=== PATIENT | female | born 1990 | race Caucasian/White ===

== ENCOUNTER → 2021-06-23 | Outpatient (CLI) | payer MEDICAID ==
[~2021-06-23] MED LIST: DCS100C PO; FRS325T PO; HYDR-34 PO; IBP600T1 PO; METR500T PO; NAPR-243 PO; PREN-115 PO
== END ==
LOC: LABNPT 15:08
PROVIDERS: ATTEND Family Medicine
DX: Z01.419 Encounter for gynecological examination (general) (routine) without abnormal findings (principal)
CPT/HCPCS: 87210

== ENCOUNTER → 2022-02-16 | Outpatient (CLI) | payer MEDICAID ==
--- NOTE | 2022-02-16 15:42 | Diagnostic Imaging Report ---
INDICATION: Right arm pain AP and lateral views of right forearm are obtained. FINDINGS: No acute fracture or dislocation is identified. No abnormal lytic or sclerotic focus is seen, and there is no radiopaque foreign body. IMPRESSION: No acute abnormality. Dictated by: Dictated on workstation # [id number]
== END ==
LOC: RAD FS 15:10
PROVIDERS: ATTEND Family Medicine
DX: M79.601 Pain in right arm (principal)
CPT/HCPCS: 73090

== ENCOUNTER 2022-05-11 22:00 | Emergency (ER) | payer MEDICAID ==
[2022-05-11 22:24] VITALS: BP 155/100
--- NOTE | 2022-05-11 22:24 | ED Lower Extremity ---
General Chief Complaint: Lower Extremity Stated Complaint: R FOOT TOE PAIN Nursing Triage Note: Pt states she fell off a stool and stubbed her toe around 1400 today. Pt complaining of right second toe pain Source: patient Exam Limitations: no limitations History of Present Illness Date Seen by Provider: May 11, 2022 Time Seen by Provider: 22:03 Initial Comments 31-year-old female with no pertinent past medical history coming in after she fell off a stool around 2 PM today bending the right second toe backwards. She says she had to push it back into place. Had immediate pain which is sharp, severe when she is moving, better when she is resting. Has not had anything for it as of yet. Is otherwise denying any other acute complaints Allergies and Home Medications Allergies Coded Allergies: No Known Drug Allergies (Unverified , 05/28/10) Patient Home Medication List Home Medication List Reviewed: Yes Docusate Sodium (Colace Capsule) 100 Mg Cap, 100 MG PO BID Prescribed by: BRENTON MACHADO on 09/05/13 1003 Ibuprofen (Motrin) 600 Mg Tab, 600 MG PO Q6H Prescribed by: BRENTON MACHADO on 09/05/13 1003 Vit #108/Iron/Fa ( One Tablet) 1 Each Tablet, 1 EACH PO DAILY, (Reported) Entered as Reported by: ELADIO CHEEMA on 06/05/12 1729 Review of Systems Constitutional: No fever EENTM: no symptoms reported Respiratory: no symptoms reported Cardiovascular: no symptoms reported Gastrointestinal: no symptoms reported Genitourinary: no symptoms reported Musculoskeletal: joint pain Skin: no symptoms reported Psychiatric/Neurological: No Symptoms Reported All Other Systems Reviewed Negative Unless Noted: Yes Past Vktisfh-Jphxmy-Xeprap Hx Patient Social History Tobacco Use?: No Use of E-Cig and/or Vaping dev: No Substance use?: No Alcohol Use?: No Pt feels they are or have been: No Immunizations Up To Date Tetanus Booster (TDap): Less than 5yrs Past Medical History Surgeries: No Reproductive Disorders: No Female Reproductive Disorders: Denies Sexually Transmitted Disease: No HIV/AIDS: No Adverse Reaction/Blood Tranf: No Family Medical History Alcoholism 03 MOTHER Family history: Gastrointestinal disease 03 FATHER (Hepatitis C- 1997) 03 MOTHER (Hepatitis C- 2012) Family history: Hypertension 03 MOTHER 09 BROTHER 09 BROTHER (Hepatitis C) History of drug abuse 03 MOTHER (Methamphetamine) 09 BROTHER (Methamphetamine) Infertile 09 SISTER Kidney disease 03 MOTHER (Kidney Failure) No Family History of: Abdominal aortic aneurysm [place]'s disease Aphasia Cancer Cancer of colon Cataract Chest pain Congenital heart disease Congestive heart failure Cystic fibrosis Dementia Dysphagia Family history: Allergy Family history: Alzheimer's disease Family history: Arthritis Family history: Asthma Family history: Breast disease Family history: Cardiovascular disease Family history: Coronary thrombosis Family history: Diabetes mellitus Family history: Glaucoma Family history: Osteoporosis Family history: Thyroid disorder Headache Hearing loss Heart disease Hereditary disease History of - anemia History of - disorder History of - respiratory disease Human immunodeficiency virus (HIV) seropositivity Hypercholesterolemia Malignant neoplasm of lung Myocardial infarction Parkinson's disease Prostate cancer Psychotic disorder Seizure disorder Stroke Tuberculosis Visual impairment Physical Exam Vital Signs Vital Signs - First Documented 05/11/22 22:04 Pulse 66 Resp 16 B/P (MAP) 155/100 (118) Pulse Ox 99 O2 Delivery Room Air Capillary Refill : Less Than 3 Seconds Height, Weight, BMI Height: '" Weight: 146lbs. oz. 66.086980kh; BMI Method:Stated General Appearance: WD/WN, no apparent distress HEENT: PERRL/EOMI, normal ENT inspection, pharynx normal Neck: non-tender, full range of motion, supple, normal inspection Cardiovascular: regular rate, rhythm, no edema, no murmur Respiratory: chest non-tender, lungs clear, normal breath sounds, no respiratory distress, no accessory muscle use Gastrointestinal: normal bowel sounds, non tender, soft; No guarding Back: normal inspection Feet: left foot non-tender, left foot normal inspection, left foot normal range of motion, left foot no evidence of injury; right foot pain, right foot soft tissue tenderness, right foot swelling, right foot other (Bruising to the right second toe with maximal pain along the proximal intermediate phalanx) Neurologic/Tendon: normal sensation, normal motor functions, normal tendon functions Neurologic/Psychiatric: no motor/sensory deficits, alert, normal mood/affect Skin: normal color, warm/dry Lymphatic: no adenopathy Progress/Results/Core Measures Results/Orders My Orders Orders - NEW RAMIREZ MD Foot 2 View Right (05/11/22 22:05) Vital Signs/I&O 05/11/22 22:04 Pulse 66 Resp 16 B/P (MAP) 155/100 (118) Pulse Ox 99 O2 Delivery Room Air Blood Pressure Mean: 118 Progress Progress Note : Progress Note 31-year-old female with above history coming in due to pain in the right second toe. ABCs were intact and vitals were stable on presentation. She has bruising and tenderness over the second intermediate phalanx proximally. X-ray ordered and interpreted by me of the right foot showing a fracture of the proximal asp ect of the proximal second intermediate phalanx. Offered ibuprofen but she does not want it at this time. She was given a postop shoe and will follow up with orthopedics. Departure Impression Primary Impression: Fracture of toe Qualified Codes: S92.524A - Nondisplaced fracture of middle phalanx of right lesser toe(s), initial encounter for closed fracture Disposition: HOME, SELF-CARE Condition: Stable Departure-Patient Inst. Decision time for Depature: 22:23 Referrals: SUPA KWAN MD (PCP/Family) Primary Care Physician RYDER FRANK Patient Instructions: Toe Fracture ED Add. Discharge Instructions: Your toe is broken, and likely will heal well on its own. Follow-up with the helpdesk specialist, Nino Frank is here in town who's number is in this paperwork. If you would prefer you can follow-up with someone else. Take ibuprofen and/or Tylenol as needed for pain. You can also ice it. Work/School Note: Work Release Form Date Seen in the Emergency Department: May 11, 2022 Return to Work: May 13, 2022 Restrictions: No Restrictions NEW RAMIREZ MD May 11, 2022 22:24
--- NOTE | 2022-05-11 22:27 | Diagnostic Imaging Report ---
EXAMINATION: Right foot radiographs, 3 views. COMPARISON: None. HISTORY: 31-year-old female, fall. Right foot pain. FINDINGS: There is normal variant congenital fusion of the fifth digit middle and distal phalanges. There is an ossification adjacent to the lateral aspect of the base of the second middle phalanx which may reflect a mildly displaced intra-articular fracture. The joint spaces appear well-preserved. There is no radiopaque foreign body. IMPRESSION: Probable mildly displaced intra-articular fracture involving the lateral aspect of the base of the second middle phalanx. Dictated by: Dictated on workstation # [id number]
== END 2022-05-11 22:27 | disposition home or self-care (01) ==
LOC: EDUNIT# 22:00 → ER FS 22:01
DX: S92.511A Displaced fracture of proximal phalanx of right lesser toe(s), initial encounter for closed fracture (principal); Z28.310 Unvaccinated for COVID-19; W08.XXXA Fall from other furniture, initial encounter
CPT/HCPCS: 73620

== ENCOUNTER → 2022-05-16 | Outpatient (CLI) | payer MEDICAID ==
[2022-05-16 22:35] LABS: HEPATITIS C ANTIBODY C Non-Reactive (Non-Reactive)
== END ==
LOC: LAB FS 10:47
PROVIDERS: ATTEND Family Medicine
DX: Z11.3 Encounter for screening for infections with a predominantly sexual mode of transmission (principal)
CPT/HCPCS: 36415; 86780; 86803; 87210; 87389

== ENCOUNTER → 2022-05-16 | Outpatient (CLI) | payer MEDICAID | LOC: LABNPT 14:56 | PROVIDERS: ATTEND Family Medicine | DX: Z11.3 Encounter for screening for infections with a predominantly sexual mode of transmission (principal) | CPT/HCPCS: 87491; 87591 ==

== ENCOUNTER → 2022-07-11 | Outpatient (CLI) | payer MEDICAID | LOC: LABNPT 14:43 | PROVIDERS: ATTEND Family Medicine | DX: Z01.419 Encounter for gynecological examination (general) (routine) without abnormal findings (principal); Z23 Encounter for immunization | CPT/HCPCS: 87491; 87591 ==

== ENCOUNTER → 2022-07-11 | Outpatient (CLI) | payer MEDICAID | LOC: LAB FS 13:00 | PROVIDERS: ATTEND Family Medicine | DX: Z01.89 Encounter for other specified special examinations (principal) | CPT/HCPCS: 87210 ==